=== PATIENT | male | born 1990 | race Caucasian/White ===

== ENCOUNTER 2018-03-29 16:18 | Emergency (ER) | payer MEDICAID, OTHER ==
[~2018-03-29] VITALS: Ht 180.3 cm; Wt 99.8 kg
--- NOTE | 2018-03-29 17:08 | ED Cough/URI ---
General Chief Complaint: Cough/Cold/Flu Symptoms Stated Complaint: FEVER,COUGH Nursing Triage Note: ARRIVED VIA AMB TO ROOM 02. STATES HE HAS HAD A FEVER AND COUGH ALONG WITH A HEADACHE AND SORE THROAT SINCE YESTERDAY. STATES TODAY FEVER WAS 100.4. NO MEDICATIONS TAKEN. History of Present Illness Date Seen by Provider: Mar 29, 2018 Time Seen by Provider: 16:55 Initial Comments 28-year-old male reports for low-grade fever, cough, sinus congestion. He has a history of seasonal allergies and normally takes loratadine. He is not currently taking this medication or any other medications. Timing/Duration: yesterday Severity/Quality: mild Prior Episodes/Possible Cause: occasional episodes Associated Symptoms: cough, nasal congestion, nasal drainage Allergies and Home Medications Allergies Uncoded Allergies: BEES (Allergy, Severe, 03/29/18) Home Medications No Active Prescriptions or Reported Meds Patient Home Medication List Home Medication List Reviewed: Yes Review of Systems Constitutional: no symptoms reported, see HPI EENTM: see HPI, nose congestion; No nose pain, No throat pain, No throat swelling Respiratory: see HPI, cough; No phlegm, No short of breath All Other Systems Reviewed Negative Unless Noted: Yes Past Ujqkvoj-Qjmkjd-Tvitjw Hx Past Med/Social Hx: Reviewed Nursing Past Med/Soc Hx Patient Social History Alcohol Use: Denies Use Recreational Drug Use: No Smoking Status: Never a Smoker Recent Foreign Travel: No Contact w/Someone Who Travel: No Recent Infectious Disease Expo: No Recent Hopitalizations: No Past Medical History Surgeries: No Respiratory: Yes (CHILDHOOD ASTHMA) Neurological: No Genitourinary: No Gastrointestinal: No Musculoskeletal: No Endocrine: No HEENT: No Cancer: No Psychosocial: No Integumentary: No Physical Exam Vital Signs Vital Signs - First Documented 03/29/18 16:27 Temp 98.0 Pulse 116 Resp 18 B/P (MAP) 139/86 (103) Pulse Ox 96 O2 Delivery Room Air Capillary Refill : Less Than 3 Seconds General Appearance: WD/WN, no apparent distress Eyes: Bilateral Eye Normal Inspection, Bilateral Eye PERRL, Bilateral Eye EOMI HEENT: PERRL/EOMI, normal ENT inspection, TMs normal, pharynx normal, other Neck: non-tender, full range of motion, supple, normal inspection; No lymphadenopathy (R), No lymphadenopathy (L) Respiratory: chest non-tender, lungs clear, normal breath sounds Cardiovascular: normal peripheral pulses, regular rate, rhythm Gastrointestinal: normal bowel sounds, non tender, soft Neurologic/Psychiatric: no motor/sensory deficits, alert, normal mood/affect, oriented x 3 Skin: normal color, warm/dry Progress/Results/Core Measures Suspected Sepsis Recent Fever Within 48 Hours: Yes Infection Criteria Present: Suspected New Infection New/Unexplained Altered Menta: No Sepsis Screen: Possible Sepsis Risk SIRS Temperature:98.0 Pulse: 116 Respiratory Rate: 18 Blood Pressure 139 /86 Mean: 103 Results/Orders Vital Signs/I&O 03/29/18 03/29/18 16:27 17:14 Temp 98.0 98.0 Pulse 116 116 Resp 18 18 B/P (MAP) 139/86 (103) 139/86 (103) Pulse Ox 96 96 O2 Delivery Room Air Capillary Refill : Less Than 3 Seconds Blood Pressure Mean: 103 Departure Impression Primary Impression: Seasonal allergies Additional Impression: Upper respiratory infection Qualified Codes: J06.9 - Acute upper respiratory infection, unspecified Disposition: HOME, SELF-CARE Condition: Stable Departure-Patient Inst. Decision time for Depature: 17:10 Referrals: MARYAM CHERY MD (PCP/Family) Primary Care Physician Patient Instructions: Seasonal Allergies (DC), Viral Upper Respiratory Infection, Adult (DC) Add. Discharge Instructions: Increase fluid intake. Resume loratadine 10 mg 1 daily. Begin using [id number] allergy nasal spray, Nasonex or Flonase as directed on bottle You may take Tylenol 650 mg alternating every 4 hours with ibuprofen 600 mg for fever or pain. See list of local health care providers to establish care. Return to the emergency department for urgent health care needs. All discharge instructions reviewed with patient and/or family. Voiced understanding. Scripts No Active Prescriptions or Reported Meds Work/School Note: Local Medical Staff Listing VISHAL NELSON Mar 29, 2018 17:08
[2018-03-29 17:14] VITALS: BP 139/86
== END 2018-03-29 17:14 | disposition home or self-care (01) ==
LOC: EDUNIT# 16:18 → ER 16:21
DX: J30.2 Other seasonal allergic rhinitis (principal); J06.9 Acute upper respiratory infection, unspecified; J45.909 Unspecified asthma, uncomplicated
CPT/HCPCS: 99281

== ENCOUNTER 2018-10-24 19:13 | Emergency (ER) | payer SELFPAY, OTHER | END 2018-10-24 22:01 | disposition home or self-care (01) | LOC: ER 19:13 ==